=== PATIENT | male | born 1970 | race African-American/Black ===

== ENCOUNTER 2018-06-07 19:28 | Emergency (ER) | payer MEDICARE, MEDICAID ==
[2018-06-07] MEDS ORDERED: HYDROCHLOROTHIAZIDE 50 MG TABLET PO ONE (20:03)
--- NOTE | 2018-06-07 20:08 | ER Document Report ---
ED Medical Screen (RME) - General Chief Complaint: Foot Pain Stated Complaint: FOOT PAIN Time Seen by Provider: 06/07/18 19:55 Primary Care Provider: TOY HUERTA [Primary Care Provider] - Follow up as needed Notes: Patient is a 48-year-old male that presents to the emergency department for chief complaint of right foot pain after injury. Patient reports that a heavy box and struck his foot around 4 PM while he was at a [employer], reports she is been able to walk on it. Blood pressure noted to be elevated, reports he was on hydrochlorothiazide, but has not been on it for about 1 year ROS: Other than noted above, the 12 point review of systems was reviewed with the patient and were negative, all pertinent findings are included in the HPI. PHYSICAL EXAMINATION: Vital signs reviewed. GENERAL: Well-appearing, well-nourished and in no acute distress. HEAD: Atraumatic, normocephalic. EYES: Pupils equal round extraocular movements intact, conjunctiva are normal. ENT: Nares patent NECK: Normal range of motion CV: Heart regular rate and rhythm LUNGS: No respiratory distress Musculoskeletal: Normal range of motion, tenderness to palpation to the right foot NEUROLOGICAL: Normal speech PSYCH: Normal mood, normal affect. MDM: Patient seen and examined for rapid initial assessment. Vital signs reviewed. A comprehensive ED assessment and evaluation of the patient, analysis of test results and completion of the medical decision making process will be conducted by additional ED providers. *Note is created using voice recognition software and may contain spelling, syntax or grammatical errors. TRAVEL OUTSIDE OF THE [place] IN LAST 30 DAYS: No - Related Data Allergies/Adverse Reactions: Penicillins Allergy (Verified 06/07/18 19:30) shellfish derived Allergy (Verified 06/07/18 19:30) Past Medical History - Past Medical History Cardiac Medical History: Reports: Hx Hypertension Renal/ Medical History: Denies: Hx Peritoneal Dialysis Physical Exam - Vital signs Vitals: Temp Pulse Resp BP Pulse Ox 98.1 F 83 18 201/124 H 95 06/07/18 19:36 06/07/18 19:36 06/07/18 19:36 06/07/18 19:36 06/07/18 19:36 Course - Vital Signs Vital signs: Temp Pulse Resp BP Pulse Ox 98.1 F 83 18 201/124 H 95 06/07/18 19:36 06/07/18 19:36 06/07/18 19:36 06/07/18 19:36 06/07/18 19:36 Doctor's Discharge - Discharge Referrals: DEANNA,NO [Primary Care Provider] - Follow up as needed
[2018-06-07] MEDS ORDERED: HYDRALAZINE HCL INJ/PF 20 MG/1 ML SDV IV ONE (21:14)
--- NOTE | 2018-06-07 21:22 | RADIOLOGY REPORT (SQ) ---
EXAM DESCRIPTION: XR FOOT 3 OR MORE VIEWS COMPLETED DATE/TME: 06/07/2018 00:00 CLINICAL HISTORY: 48 years, Male, Boxed Fire pit fell on R foot at [employer] COMPARISON: None. NUMBER OF VIEWS: TECHNIQUE: LIMITATIONS: None. FINDINGS: No fracture or dislocation. Mineralization of bone appears normal. IMPRESSION: No fracture or dislocation. copyright 2010 [employer]- All Rights Reserved
--- NOTE | 2018-06-07 21:49 | EKG REPORT ---
SEVERITY:- ABNORMAL ECG - SINUS RHYTHM LEFT AXIS DEVIATION LVH WITH SECONDARY REPOLARIZATION ABNORMALITY : Confirmed by: Geno Viera MD 07-Jun-2018 21:48:56
[2018-06-07 22:42] LABS: ABSOLUTE EOSINOPHILS # (AUTO) 0.1 10^3/uL (0.0-0.6); ABSOLUTE MONOCYTES (AUTO) 0.3 10^3/uL (0.1-1.4); BASOPHILS % (AUTO) 0.4 % (0-2); EOSINOPHILS % (AUTO) 1.7 % (0-6); HEMATOCRIT 45.1 % (37.9-51.0); HEMOGLOBIN 15.5 g/dL (13.5-17.0); LYMPHOCYTES % (AUTO) 23.1 % (13-45); MEAN CORPUSCULAR HEMOGLOBIN 29.5 pg (27.0-33.4); MEAN CORPUSCULAR HGB CONC 34.3 g/dL (32.0-36.0); MEAN CORPUSCULAR VOLUME 86 fl (80-97); MONOCYTES % (AUTO) 7.7 % (3-13); PLATELET COUNT 153 10^3/uL (150-450); RED BLOOD COUNT 5.25 10^6/uL (4.35-5.55); RED CELL DISTRIBUTION WIDTH 14.9 % (11.5-14.0); SEGMENTED NEUTROPHILS % (AUTO) 67.1 % (42-78); TOTAL CELLS COUNTED % (AUTO) 100 %; WHITE BLOOD COUNT 4.5 10^3/uL (4.0-10.5)
[2018-06-07 23:00] LABS: ALANINE AMINOTRANSFERASE 55 U/L (21-72); ALBUMIN 4.4 g/dL (3.5-5.0); ALKALINE PHOSPHATASE 72 U/L (38-126); ANION GAP 8 (5-19); ASPARTATE AMINO TRANSFERASE 40 U/L (17-59); BILIRUBIN,DIRECT 0.1 mg/dL (0.0-0.4); BILIRUBIN,TOTAL 0.5 mg/dL (0.2-1.3); BLOOD UREA NITROGEN 20 mg/dL (7-20); CALCIUM 9.4 mg/dL (8.4-10.2); CARBON DIOXIDE 33 mmol/L (22-30); CHLORIDE 101 mmol/L (98-107); CREATINE KINASE 511 U/L (55-170); GLUCOSE 109 mg/dL (75-110); POTASSIUM 3.5 mmol/L (3.6-5.0); SODIUM 141.9 mmol/L (137-145); TOTAL PROTEIN 7.9 g/dL (6.3-8.2)
[2018-06-07 23:12] LABS: CREATINE KINASE MB 1.66 ng/mL (<4.55); NT PRO BNP 21 pg/mL (<125)
[2018-06-07 23:17] LABS: TROPONIN I < 0.012 ng/mL
--- NOTE | 2018-06-07 23:54 | ER Document Report ---
ED General - General Chief Complaint: Foot Pain Stated Complaint: FOOT PAIN Time Seen by Provider: 06/07/18 19:55 Primary Care Provider: TOY HUERTA [NO LOCAL MD] - Follow up as needed JOYCE LOYOLA MD [COMMUNITY BASED STAFF] - Follow up as needed Mode of Arrival: Ambulatory Information source: Patient Notes: Patient said he ran out of his blood pressure medicine many months ago and he has not brought that to see a doctor for a refill. He complained of right foot pain after an object fell on his right foot at [employer]. TRAVEL OUTSIDE OF THE [place] IN LAST 30 DAYS: No - HPI Onset: Just prior to arrival Onset/Duration: Sudden Quality of pain: Achy, Dull Severity: Mild Pain Level: 1 Context: Patient said while he was on [employer], something fell on his right foot. He complained of right foot pain. Associated symptoms: None Exacerbated by: Denies Relieved by: Denies Similar symptoms previously: No Recently seen / treated by doctor: No - Related Data Allergies/Adverse Reactions: Penicillins Allergy (Verified 06/07/18 19:30) shellfish derived Allergy (Verified 06/07/18 19:30) Past Medical History - Social History Smoking Status: Never Smoker Family History: Hypertension Patient has suicidal ideation: No Patient has homicidal ideation: No - Past Medical History Cardiac Medical History: Reports: Hx Hypertension Renal/ Medical History: Denies: Hx Peritoneal Dialysis Review of Systems - Review of Systems Constitutional: No symptoms reported EENT: No symptoms reported Cardiovascular: No symptoms reported Respiratory: No symptoms reported Gastrointestinal: No symptoms reported Genitourinary: No symptoms reported Male Genitourinary: No symptoms reported Musculoskeletal: Other - Right foot pain Skin: No symptoms reported Hematologic/Lymphatic: No symptoms reported Neurological/Psychological: No symptoms reported Physical Exam - Vital signs Vitals: Temp Pulse Resp BP Pulse Ox 98.1 F 83 18 201/124 H 95 06/07/18 19:36 06/07/18 19:36 06/07/18 19:36 06/07/18 19:36 06/07/18 19:36 Interpretation: Normal - General General appearance: Appears well, Alert, Other - Obesity - HEENT Head: Normocephalic, Atraumatic Eyes: Normal Pupils: PERRL - Respiratory Respiratory status: No respiratory distress Chest status: Nontender Breath sounds: Normal Chest palpation: Normal - Cardiovascular Rhythm: Regular Heart sounds: Normal auscultation Murmur: No - Abdominal Inspection: Normal Distension: No distension Bowel sounds: Normal Tenderness: Nontender Organomegaly: No organomegaly - Back Back: Normal, Nontender - Extremities General upper extremity: Normal inspection, Nontender, Normal color, Normal ROM, Normal temperature General lower extremity: Normal inspection, Nontender, Normal color, Normal ROM, Normal temperature, Normal weight bearing. No: Kristen's sign Foot: Tender - Mild tenderness to palpation on the dorsal aspect of the right foot., No evidence of FB. No: Abrasion, Deformity, Ecchymosis, Edema, Laceration - Neurological Neuro grossly intact: Yes Cognition: Normal Orientation: AAOx4 [place] Coma Scale Eye Opening: Spontaneous [place] Coma Scale Verbal: Oriented [place] Coma Scale Motor: Obeys Commands [place] Coma Scale Total: 15 Speech: Normal Motor strength normal: LUE, RUE, LLE, RLE Sensory: Normal - Psychological Associated symptoms: Normal affect, Normal mood - Skin Skin Temperature: Warm Skin Moisture: Dry Skin Color: Normal Course - Re-evaluation Re-evalutation: 06/08/18 02:49 Patient said he is feeling much better I would like to be discharged home. - Vital Signs Vital signs: Temp Pulse Resp BP Pulse Ox 98.1 F 83 20 159/109 H 96 06/07/18 19:36 06/07/18 19:36 06/08/18 03:01 06/08/18 03:01 06/08/18 03:01 - Laboratory Result Diagrams: 06/07/18 22:15 06/07/18 22:15 Laboratory results interpreted by me: 06/07/18 06/07/18 22:15 22:15 RDW 14.9 H Potassium 3.5 L Carbon Dioxide 33 H Creatinine 1.42 H Est GFR (Non-Af Amer) 54 L Creatine Kinase 511 H - Diagnostic Test Radiology reviewed: Reports reviewed Discharge - Discharge Clinical Impression: Right foot pain Hypertension Qualifiers: Hypertension type: unspecified Qualified Code(s): I10 - Essential (primary) hypertension Condition: Stable Disposition: HOME, SELF-CARE Instructions: High Blood Pressure ([facility]) Additional Instructions: Please follow-up with Dr. Ernie Loyola tomorrow morning. Return to the emergency room if your condition worsens. Prescriptions: Amlodipine Besylate [Norvasc 10 mg Tablet] 10 mg PO DAILY #30 tablet Hydrochlorothiazide [Hydrodiuril 50 mg Tablet] 50 mg PO QAM #30 tablet Forms: Return to Work Referrals: TOY HUERTA [NO LOCAL MD] - Follow up as needed JOYCE LOYOLA MD [COMMUNITY BASED STAFF] - Follow up as needed
[2018-06-08] MEDS ORDERED: AMLODIPINE BESYLATE 10 MG TABLET PO ONE (00:12)
[2018-06-08] MEDS ORDERED: AMLODIPINE BESYLATE 5 MG TABLET PO ONE (00:59)
--- NOTE | 2018-06-08 01:43 | RADIOLOGY REPORT (SQ) ---
EXAM DESCRIPTION: CT HEAD WITHOUT IV CONTRAST COMPLETED DATE/TME: 06/08/2018 00:12 CLINICAL HISTORY: 48 years Male, Hypertension COMPARISON: None. TECHNIQUE: No contrast. Coronal and sagittal reformat. This exam was performed according to our departmental dose-optimization program, which includes automated exposure control, adjustment of the mA and/or kV according to patient size and/or use of iterative reconstruction technique. FINDINGS: No hemorrhage or ischemia demonstrated. No mass, mass effect, or midline shift. Senescent calcification of bilateral globes pallidus. Bilateral maxillary mucous retention cyst measuring 1-2 cm. Brain and extra-axial structures appear otherwise intact. IMPRESSION: No acute findings.
[2018-06-08 03:16] VITALS: BP 159/109
== END 2018-06-08 03:58 | disposition home or self-care (01) ==
LOC: ER 19:28
DX: M79.671 Pain in right foot (principal); W20.8XXA Other cause of strike by thrown, projected or falling object, initial encounter; Y92.512 Supermarket, store or market as the place of occurrence of the external cause; I10 Essential (primary) hypertension; Z88.0 Allergy status to penicillin
CPT/HCPCS: 93005; 99284; 96374; 36415; 82553; 82550; 85025; 80053; 84484; 83880; 73630; 70450; 93010; J0360; J3490; A9270